=== PATIENT | male | born 1995 | race Caucasian/White ===

== ENCOUNTER 2022-01-07 08:44 | Emergency (ER) | payer BC ==
[2022-01-07] MEDS ORDERED: Bacitracin Oint 1 GM U/D Packet TOP ONE (09:34)
[2022-01-07] MEDS ORDERED: Lidocaine 1% 5 ML VIAL INJECT ONE (09:34)
== END 2022-01-07 10:59 | disposition home or self-care (01) ==
LOC: JP.ED 08:44
DX: L03.011 Cellulitis of right finger (principal); L02.511 Cutaneous abscess of right hand
CPT/HCPCS: 10060; 99283-25